=== PATIENT | male | born 1970 | race Native Hawaiian/Other Pacific Islander ===

== ENCOUNTER 2025-07-24 08:17 | Outpatient (CLI) | payer MEDICAID | END 2025-07-24 23:59 | disposition home or self-care (01) | LOC: WOU 08:17 | PROVIDERS: ATTEND Student in an Organized Health Care Education/Training Program | DX: M25.642 Stiffness of left hand, not elsewhere classified (principal); S68.61 Complete traumatic transphalangeal amputation of other and unspecified finger(s); X58.XXXD Exposure to other specified factors, subsequent encounter | CPT/HCPCS: G0463 ==